=== PATIENT | female | born 1950 | race Caucasian/White ===

== ENCOUNTER 2023-12-21 07:41 | Day surgery (SDC) | payer MEDICARE ==
[2023-12-21] MEDS ORDERED: Propofol 200 MG/20 ML SDV ONE (07:59)
[2023-12-21] MEDS ORDERED: fentaNYL 50 MCG/ML SDV ONE (07:59)
[2023-12-21] MEDS ORDERED: Midazolam 1 MG/ML 2 ML SDV ONE (07:59)
[2023-12-21] MEDS: Lactated Ringers 1,000 ML IV SCH (08:11)
== END 2023-12-21 11:16 | disposition home or self-care (01) ==
LOC: JP.SDS 07:41
PROVIDERS: ATTEND Student in an Organized Health Care Education/Training Program
DX: K57.30 Diverticulosis of large intestine without perforation or abscess without bleeding (principal); I10 Essential (primary) hypertension; J45.909 Unspecified asthma, uncomplicated; F41.9 Anxiety disorder, unspecified; E66.01 Morbid (severe) obesity due to excess calories; Z68.43 Body mass index [BMI] 50.0-59.9, adult; G47.33 Obstructive sleep apnea (adult) (pediatric); I48.0 Paroxysmal atrial fibrillation; E78.5 Hyperlipidemia, unspecified; Z87.891 Personal history of nicotine dependence; Z79.82 Long term (current) use of aspirin; Z79.899 Other long term (current) drug therapy
CPT/HCPCS: 45378; 93005; 93010; J2250; J2704; J3010; J7120

== ENCOUNTER 2024-09-08 11:36 | Emergency (ER) | payer MEDICARE ==
[2024-09-08 11:48] LABS: BASOPHILS ABSOLUTE AUTO 0.05 K/uL (0.00-0.10); BASOPHILS PERCENT AUTO 0.6 % (0.1-1.3); EOSINOPHILS ABSOLUTE AUTO 0.09 K/uL (0.00-0.40); EOSINOPHILS PERCENT AUTO 1.2 % (0.0-5.4); HEMATOCRIT 45.7 % (34.3-46.0); HEMOGLOBIN 16.3 g/dL (11.2-15.5); IMMATURE GRAN ABSOLUTE AUTO 0.03 K/uL (0.00-0.23); IMMATURE GRAN PERCENT AUTO 0.4 % (0.0-0.7); LYMPHOCYTES ABSOLUTE AUTO 2.31 K/uL (0.8-3.3); LYMPHOCYTES PERCENT AUTO 29.9 % (11.4-47.7); MEAN CORPUSCULAR HEMOGLOBIN 33.6 pg (31.6-35.5); MEAN CORPUSCULAR HGB CONC 35.7 g/dL (31.6-35.5); MEAN CORPUSCULAR VOLUME 94.2 fL (81.4-99.0); MONOCYTES ABSOLUTE AUTO 0.75 K/uL (0.20-0.90); MONOCYTES PERCENT AUTO 9.7 % (3.3-12.6); NEUTROPHILS PERCENT AUTO 58.2 % (40.0-78.1); PLATELET COUNT,PLT 284 K/uL (130-375); RED BLOOD CELL COUNT 4.85 M/uL (3.77-5.24); WHITE BLOOD CELL COUNT,WBC 7.7 K/uL (3.2-11.0)
[2024-09-08 12:07] LABS: PROTHROMBIN TIME 10.5 sec (9.2-10.6); PTT,PARTIAL THROMBOPLSTIN TIME 24.6 sec (21.8-27.3)
[2024-09-08 12:23] LABS: ANION GAP 13.1 mmol/L (5.0-14.0); CREATININE 1.2 mg/dL (0.6-1.0); EST CRCL DRUG DOSING (CG) 30.1 mL/min; POTASSIUM,K 4.1 mmol/L (3.6-5.2); TROPONIN I HIGH SENSITIVITY 18.2 pg/mL (<=60.3)
[2024-09-08] MEDS: Sodium Chloride 0.9% 1,000 ML IV ONE (12:33)
== END 2024-09-08 14:12 | disposition home or self-care (01) ==
LOC: JP.ED 11:36
DX: I48.91 Unspecified atrial fibrillation (principal); I10 Essential (primary) hypertension; E66.9 Obesity, unspecified; Z87.891 Personal history of nicotine dependence; Z88.1 Allergy status to other antibiotic agents; Z88.8 Allergy status to other drugs, medicaments and biological substances; Z88.5 Allergy status to narcotic agent; Z88.2 Allergy status to sulfonamides; Z79.899 Other long term (current) drug therapy; Z68.43 Body mass index [BMI] 50.0-59.9, adult
CPT/HCPCS: 36415; 71045; 71045-26; 80048; 84484; 85025; 85610; 85730; 93005; 96360; 99285-25; J7030